=== PATIENT | female | born 1935 | race Caucasian/White ===

== ENCOUNTER 2017-03-10 13:10 | Emergency (ER) | payer OTHER ==
[~2017-03-10] VITALS: Ht 157.5 cm; Wt 45.0 kg
[~2017-03-10 13:10] MED LIST: ALUM-30 PO; ASPI-232 PO; CALC625T PO; DOCU-94 PO; HYDR12.56 PO; LOSA1TAB38 PO; PANT40TA PO; TRAM-10 PO; VERA240T20 PO
[2017-03-10 13:18] VITALS: TEMP 36.8; Ht 157.5 cm; Wt 45.0 kg
[2017-03-10] MEDS ORDERED: TRAM-10 PO (14:02)
[2017-03-10] MEDS ORDERED: PRT/20 PO (14:02)
[2017-03-10] MEDS ORDERED: DOCU-94 PO (14:02)
[2017-03-10] MEDS ORDERED: FLUT1INH INH (14:02)
[2017-03-10] MEDS ORDERED: ASPI81TA28 PO (14:02)
[2017-03-10] MEDS ORDERED: VERA240T20 PO (14:02)
[2017-03-10] MEDS ORDERED: ALEN70TA2 PO (14:02)
[2017-03-10] MEDS ORDERED: CALC625T PO (14:02)
[2017-03-10] MEDS ORDERED: LOSA100T65 PO (14:02)
[2017-03-10] MEDS ORDERED: DULO-24 PO ×2 (14:02)
[2017-03-10] MEDS ORDERED: ACET-1256 PO (14:02)
[2017-03-10] MEDS ORDERED: OXGN (14:02)
[2017-03-10] MEDS ORDERED: VNTHFA/IN INH (14:02)
--- NOTE | 2017-03-10 14:02 | EMERGENCY ROOM VISIT NOTE ---
History First contact with patient: 13:39 Chief Complaint: ANKLE PAIN Stated Complaint: FELL AND INJURED L ANKLE History of Present Illness The patient is a 81 year old female who presents to the Emergency Room with complaints of left foot and ankle pain resulting from a fall that happened last night. The patient slipped. She does not remember how she fell. She thinks that she may have hit her head. She denies any severe headache, dizziness or nausea. She is not able to bear much weight on the left foot. She denies any previous injury to the left foot or ankle. The patient has a history of vascular dementia. She takes aspirin daily. She denies any other blood thinners. She denies any neck pain. No hip pain. Denies any chest or abdominal pain. Review of Systems 10 system review performed and negative unless noted in HPI or below Past Medical/Surgical History Vascular dementia Hypertension Social History Smoking Status: Current Every Day Smoker Housing Status: lives with family Current/Historical Medications Scheduled Albuterol Hfa (Ventolin Hfa), 2-4 PUFFS INH Q6H Alendronate Sodium (Fosamax), 70 MG PO WK Aspirin (Aspirin Ec), 81 MG PO QAM Calcium Polycarbophil (Fibercon), 1,250 MG PO BID Docusate Sodium (Colace), 100 MG PO BID Duloxetine HCl (Cymbalta), 40 MG PO QAM Duloxetine HCl (Cymbalta), 20 MG PO QPM Fluticasone Furoate-Vilanterol (Breo Ellipta), 1 DOSE INH HS Home O2 Therapy (Oxygen), Unknown Dose NA PRN Losartan Potassium (Cozaar), 100 MG PO QAM Pantoprazole (Protonix), 20 MG PO QAM Tramadol (Ultram), 50 MG PO HS Verapamil Sust Rel (Calan Sr Ext Rel), 240 MG PO HS Scheduled PRN Acetaminophen (Tylenol), 500 MG PO TID PRN for Pain Physical Exam Vital Signs Date Time Temp Pulse Resp B/P (MAP) Pulse Ox O2 Delivery O2 Flow Rate FiO2 03/10/17 15:12 74 18 170/73 94 Room Air 03/10/17 13:18 36.8 82 18 134/58 94 Room Air Physical Exam VITALS: Vitals are noted on the nurse's note and reviewed by myself. Vital signs stable. GENERAL: 81-year-old female, in no acute distress, nondiaphoretic, well- developed well-nourished. SKIN: The skin was intact HEAD: Normocephalic atraumatic. EARS: External auditory canals clear, tympanic membranes pearly frank without erythema or effusion bilaterally. EYES: Pupils equal round and reactive to light and accommodation. Conjunctivae without injection, sclerae without icterus. Extraocular movements intact. NECK: S. Cervical spine is nontender. HEART: Regular rate and rhythm without murmurs gallops or rubs. LUNGS: Clear to auscultation bilaterally without wheezes, rales or rhonchi. No accessory muscle use. No tenderness over the thorax. ABDOMEN: Positive bowel sounds x 4.Soft, nontender, without organomegaly. No guarding or rebound tenderness. MUSCULOSKELETAL: Edema and erythema noted particular to the dorsal aspect of the left foot. Some tenderness also over the left lateral malleolus. Pain with plantar flexion. DP pulse +1. Capillary refills less than 2 seconds. No tenderness over the proximal tibia or fibula. No tenderness over the spinous processes throughout the spine. Strength 5/5 throughout. NEURO: Patient was alert and oriented to person and place only. Cerebellar function intact.. Normal sensation to touch. No focal neurological deficits. Medical Decision & Procedures ER Provider Diagnostic Interpretation: CT head Patient Name: RIMMA GEORGE Unit Number: [id number] Dictated: 03/10/171434 Transcribed: 03/10/171434 Printed Date/Time: [~ rep prt dt]/[~ rep prt tm] [~ rep ct labl] - [~ rep ct ivnm] [facility] [place] [address] Dictated: 03/10/171434 Transcribed: 03/10/171434 Printed Date/Time: [~ rep prt dt]/[~ rep prt tm] [~ rep ct labl] - [~ rep ct ivnm] IMPRESSION: 1. No acute intracranial findings. 2. No calvarial fracture. Electronically signed by: Charles Goldstein M.D. 03/10/2017 2:38 PM Dictated Date/Time: 03/10/2017 2:35 PM The status of this report is Signed. Draft = Not yet reviewed or approved by Radiologist. Signed = Reviewed and approved by Radiologist. <AttendingPhy></AttendingPhy> <FamilyPhy>Katelin ESTES M.D.</FamilyPhy> < PrimaryPhy>Katelin ESTES M.D.</PrimaryPhy> <UnitNumber>[id number]</UnitNumber> <VisitNumber>[id number]</VisitNumber> <PatientName>RIMMA GEORGE</ PatientName> <DateOfBirth>1935</DateOfBirth> <Location>[facility]</Location> < ServiceDate>03/10/17</ServiceDate> <MNE>ESINDI</MNE> <OrderingPhy>Fatou Garcia PA-C</OrderingPhy> <OrderingPhyMNE>f rep ord dr petty</OrderingPhyMNE> < DictatingPhyMNE>f rep dict dr petty</DictatingPhyMNE> <CCListMNE>f rep ct mne</ CCListMNE> <AdmittingPhyMNE>f pt admit dr petty</AdmittingPhyMNE> <AttendingPhyMNE >f pt attend dr petty</AttendingPhyMNE> <ConsultingPhyMNE>f pt consult dr petty</ConsultingPhyMNE> <FamilyPhyMNE>f pt fam dr petty</FamilyPhyMNE> <OtherPhyMNE>f pt other dr petty</OtherPhyMNE> < PrimaryPhyMNE>f pt prim care dr petty</PrimaryPhyMNE> <ReferringPhyMNE>f pt referring dr petty</ReferringPhyMNE> ankle/foot xray IMPRESSION: No acute fracture or dislocation of the left foot. Electronically signed by: Charles Goldstein M.D. 03/10/2017 2:27 PM Dictated Date/Time: 03/10/2017 2:24 PM The status of this report is Signed. Draft = Not yet reviewed or approved by Radiologist. Signed = Reviewed and approved by Radiologist. IMPRESSION: No acute fracture or dislocation of the left ankle. Electronically signed by: Charles Goldstein M.D. 03/10/2017 2:24 PM Dictated Date/Time: 03/10/2017 2:23 PM The status of this report is Signed. Draft = Not yet reviewed or approved by Radiologist. Signed = Reviewed and approved by Radiologist. Medications Administered Medications (Trade) Dose Ordered Sig/Juan Route Start Time Stop Time Status Last Admin Dose Admin Acetaminophen (Tylenol Tab) 650 mg NOW STAT PO 03/10/17 15:04 03/10/17 15:05 DC 03/10/17 15:11 650 MG ED Course The patient was seen and examined She was given Tylenol for pain Imaging was performed and reviewed The findings were discussed with the patient patient's family. They voiced understanding. She was given a postop shoe and a walker. Gait training was performed. Discharge instructions were reviewed, and she was discharged in good condition Medical Decision Differential diagnosis: Head injury, skull fracture, ankle/foot fracture, contusion, sprain This patient is an 81-year-old female with a history of vascular dementia that presents with left foot and ankle pain resulting from a fall. She also might have hit her head. The history is limited secondary to dementia. On exam, there are no signs of head trauma. She did have ecchymosis and swelling over the left foot. I ordered imaging. No acute intracranial abnormalities or skull fracture were noted. No fracture of the foot or ankle. I believe she is stable to be discharged home. The patient was given a walker. She did well with a postop shoe and a walker on her ambulatory trial. The patient will spend the night with her daughter. They are comfortable with this plan. She was instructed to elevate and ice the foot. She will take Tylenol for discomfort. She will follow-up with her primary care physician early this week , and return to the emergency department with any new or concerning symptoms. This chart was completed in part utilizing [employer] Speech Voice Recognition software. Attempts were made to minimize the grammatical errors, random word insertions, pronoun errors and incomplete sentences. Any formal questions or concerns about the content, text or information contained within the body of this dictation should be directly addressed to the provider for clarification. Medication Reconcilliation Current Medication List: was personally reviewed by me Blood Pressure Screening Patient's blood pressure: Normal blood pressure Impression Primary Impression: Contusion of foot, left Departure Information Dispostion Home / Self-Care Condition GOOD Referrals Katelin ESTES M.D. (PCP) Patient Instructions ED Contusion Foot, [facility] Additional Instructions You have been evaluated in the emergency department with left foot pain and swelling after a fall. There were no fractures on the x-ray. This is likely a bad sprain and contusion. Please use the postop shoe and walker while up and about. Elevate the foot as much as possible over the next 48 hours. Apply ice for 20 minute intervals at a time for the next 48 hours. Please take Tylenol 650 mg every 6 hours as needed for pain Please follow-up with your primary care physician within the next 5-7 days for recheck. Do not hesitate to return to the emergency department with any new, worsening or concerning symptoms.
--- NOTE | 2017-03-10 14:25 | DIAGNOSTIC IMAGING REPORT ---
L ANKLE MIN 3 VIEWS ROUTINE CLINICAL HISTORY: Lateral left ankle pain and swelling. COMPARISON: None FINDINGS: Alignment of the left ankle is anatomic. Talar dome is intact. No acute fracture is identified. There is minimal posterior calcaneal spurring. IMPRESSION: No acute fracture or dislocation of the left ankle. Electronically signed by: Charles Goldstein M.D. 03/10/2017 2:24 PM Dictated Date/Time: 03/10/2017 2:23 PM
--- NOTE | 2017-03-10 14:28 | DIAGNOSTIC IMAGING REPORT ---
L FOOT MIN 3 VIEWS ROUTINE CLINICAL HISTORY: L Lateral dorsal foot pain swelling COMPARISON: None FINDINGS: Tarsometatarsal joints are intact. No acute fracture within the left foot is identified. 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 IMPRESSION: No acute fracture or dislocation of the left foot. Electronically signed by: Charles Goldstein M.D. 03/10/2017 2:27 PM Dictated Date/Time: 03/10/2017 2:24 PM
--- NOTE | 2017-03-10 14:39 | DIAGNOSTIC IMAGING REPORT ---
CT OF THE HEAD WITHOUT CONTRAST CLINICAL HISTORY: Fall with head injury. COMPARISON STUDY: No previous studies for comparison. CT DOSE: 655.73 mGy.cm TECHNIQUE: Helical axial images of the head were obtained without IV contrast. Automated exposure control was utilized for the study. A dose lowering technique was utilized adhering to the principles of ALARA. FINDINGS: No acute intracranial hemorrhage, midline shift or mass effect is present. Mild ventricular dilatation is likely due to atrophy. The basilar cisterns are patent. There are no extra-axial collections. Golden-white differentiation is maintained. White matter hypodensity suggests small vessel disease. Hypodensity within the left external capsule could reflect an old infarct or small vessel disease. There are no findings to suggest acute dural sinus thrombosis or acute territorial infarct. There are no calvarial fractures. Visualized portions of the sinuses and mastoid air cells are clear. IMPRESSION: 1. No acute intracranial findings. 2. No calvarial fracture. Electronically signed by: Charles Goldstein M.D. 03/10/2017 2:38 PM Dictated Date/Time: 03/10/2017 2:35 PM
--- NOTE | 2017-03-10 15:01 | EMERGENCY ROOM VISIT NOTE ---
ED Visit Note First contact with patient: 13:39 I have personally seen and evaluated the patient with the physician rehab care assistant. I agree with the diagnostic/management decisions and have personally been involved in these decisions and agree with the diagnosis.
[2017-03-10] MEDS ORDERED: ACETAMINOPHEN 325 MG TAB PO STA (15:04)
[2017-03-10 15:12] VITALS: BP 170/73; PULSE 74; O2SAT 94
== END 2017-03-10 15:25 | disposition home or self-care (01) ==
LOC: C.EDB 13:12 → C.EDD 15:25
DX: S90.32XA Contusion of left foot, initial encounter (principal); W01.0XXA Fall on same level from slipping, tripping and stumbling without subsequent striking against object, initial encounter; F01.50 Vascular dementia, unspecified severity, without behavioral disturbance, psychotic disturbance, mood disturbance, and anxiety; I10 Essential (primary) hypertension; F17.200 Nicotine dependence, unspecified, uncomplicated; Z79.82 Long term (current) use of aspirin